=== PATIENT | male | born 1955 | race African-American/Black ===

== ENCOUNTER 2017-10-26 10:25 | Emergency (ER) | payer OTHER ==
[~2017-10-26] VITALS: Ht 177.8 cm; Wt 90.0 kg
[2017-10-26 10:26] VITALS: BP 141/85
[2017-10-26] MEDS ORDERED: BACITRACIN ZINC OINT UDPKT TOP ONE (13:00)
[2017-10-26] MEDS ORDERED: ACETAMINOPHEN 325MG TABLET PO ONE (13:00)
[2017-10-26] MEDS ORDERED: TETANUS, DIPHTHERIA, PERTUSSIS VAC/PF 0.5ML (>7YR OLD) IM ONE (14:30)
[2017-10-26] MEDS ORDERED: LIDOCAINE HCL 1% 20ML VIAL (Pyxis) INJ INFIL ONE (16:15)
== END 2017-10-26 17:35 | disposition home or self-care (01) ==
LOC: ER 10:25
DX: S01.81XA Laceration without foreign body of other part of head, initial encounter (principal); S09.8XXA Other specified injuries of head, initial encounter; F17.200 Nicotine dependence, unspecified, uncomplicated; X58.XXXA Exposure to other specified factors, initial encounter; Y93.9 Activity, unspecified; Y92.9 Unspecified place or not applicable
CPT/HCPCS: 12001; 70450; 90471; 90715; 99284; J3490

== ENCOUNTER 2020-08-06 03:33 | Emergency (ER) | payer MEDICARE, OTHER ==
[~2020-08-06] VITALS: Ht 177.8 cm; Wt 73.0 kg
[2020-08-06] MEDS ORDERED: TETANUS, DIPHTHERIA, PERTUSSIS VAC/PF 0.5ML (>7YR OLD) IM ONE (04:00)
[2020-08-06 04:06] LABS: BASOPHILS % 0.6 % (0.0-2.0); EOSINOPHILS % 0.7 % (0.0-5.0); HEMATOCRIT. 42.6 % (42.0-52.0); HEMOGLOBIN. 14.6 g/dL (14.0-18.0); LYMPHOCYTES % 11.6 % (20.0-50.0); MEAN CORPUSCULAR HEMOGLOBIN 35.5 pg (28.0-32.0); MEAN CORPUSCULAR VOLUME 103.5 fL (80.0-94.0); MEAN PLATELET VOLUME 8.5 fl (7.4-10.4); MONOCYTES % 9.8 % (2.0-8.0); NEUTROPHILS % 77.3 % (40.0-76.0); PLATELET 155 x1000/uL (130-400); RED BLOOD CELL COUNT 4.12 mill/uL (4.7-6.1); RED CELL DISTRIBUTION WIDTH 12.9 % (11.6-14.6)
[2020-08-06 04:11] LABS: CHLORIDE 107 mEq/L (98-107)
[2020-08-06 04:16] LABS: ETHANOL BLOOD < 10 mg/dL
[2020-08-06 04:21] LABS: CREATINE KINASE 599 IU/L (39-308)
[2020-08-06 04:27] LABS: PARTIAL THROMBOPLASTIN TIME 23.5 sec (23.4-31.0); PROTHROMBIN TIME 11.1 sec (9.6-11.0)
[2020-08-06 05:31] LABS: CLARITY URINE CLEAR (CLEAR); COLOR URINE YELLOW (YELLOW); KETONES URINE NEGATIVE (NEGATIVE); LEUKOCYTE ESTERASE URINE NEGATIVE (NEGATIVE); NITRITE URINE NEGATIVE (NEGATIVE); OCCULT BLOOD URINE NEGATIVE (NEGATIVE); PH URINE 6.5 (4.5-8.0); PROTEIN URINE 1+ (NEGATIVE); SPECIFIC GRAVITY URINE 1.019 (1.005-1.030)
[2020-08-06] MEDS ORDERED: IOHEXOL-300 100 ML BOTTLE ONE (05:46)
[2020-08-06 05:51] LABS: *AMPHETAMINES SCREEN URINE NEGATIVE (NEGATIVE); *BARBITURATES SCREEN URINE NEGATIVE (NEGATIVE); *BENZODIAZEPINES SCREEN URINE NEGATIVE (NEGATIVE); CANNABINOID URINE SCREEN NEGATIVE (NEGATIVE); METHADONE URINE SCREEN NEGATIVE (NEGATIVE); OPIATES URINE SCREEN NEGATIVE (NEGATIVE); PHENCYCLIDINE URINE SCREEN NEGATIVE (NEGATIVE)
[2020-08-06 05:52] LABS: *COCAINE SCREEN URINE PRESUMTIVE POSITIVE (NEGATIVE)
[2020-08-06] MEDS ORDERED: LIDO700A30 TP (06:29)
[2020-08-06] MEDS ORDERED: IBUP-2029 MT (06:29)
[2020-08-06] MEDS ORDERED: HYDROCODONE/ACETAMINOPHEN 10/325MG TABLET PO ONE (06:45)
[2020-08-06 07:48] VITALS: BP 155/91
== END 2020-08-06 08:11 | disposition home or self-care (01) ==
LOC: ER 03:33
DX: S22.42XA Multiple fractures of ribs, left side, initial encounter for closed fracture (principal); S40.212A Abrasion of left shoulder, initial encounter; Y08.89XA Assault by other specified means, initial encounter; Y93.89 Activity, other specified; Y92.89 Other specified places as the place of occurrence of the external cause; K40.90 Unilateral inguinal hernia, without obstruction or gangrene, not specified as recurrent; N32.89 Other specified disorders of bladder; N13.30 Unspecified hydronephrosis; N40.0 Benign prostatic hyperplasia without lower urinary tract symptoms; F14.10 Cocaine abuse, uncomplicated; F12.90 Cannabis use, unspecified, uncomplicated; Z23 Encounter for immunization
CPT/HCPCS: 36415; 71045; 74177; 80053; 80305; 80320; 81003; 82550; 83690; 85025; 85610; 85730; 86850; 86900; 86901; 90471; 90715; 93005; 99285; Q9967; G0480